=== PATIENT | female | born 2000 | race Caucasian/White ===

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

== ENCOUNTER 2022-03-24 14:03 | Emergency (ER) | payer OTHER, SELFPAY ==
[2022-03-24 15:34] VITALS: BP 121/69; PULSE 62; RESP 16; TEMP 36.3; O2SAT 100
--- NOTE | 2022-03-26 13:43 | ED.GENADULT ---
HPI - General Adult General Chief complaint: Upper Respiratory Infection Stated complaint: bilateral ear pain History of Present Illness HPI narrative: 21 y/o female. PMHx none reported. Presents to [facility] today with acute complaints of bilateral ear pain and discharge, LT > Burdensome than RT. Manifestations present for past 72 hours. Minimal reliefs at home. No fevers, no rashes or lesions. Mild nasal congestion. No cough, dyspnea, wheezing. Hearing is 'muffled', no hearing loss or auditory trauma. Related Data Home Medications Medication Instructions Recorded Confirmed drospirenone (contraceptive) 4 mg 4 mg DAILY 12/06/21 03/24/22 (28) tablet (Slynd) sertraline 50 mg tablet 50 mg DAILY 12/06/21 03/24/22 topiramate 25 mg sprinkle capsule 25 mg PO DAILY 12/06/21 03/24/22 Allergies Allergy/AdvReac Type Severity Reaction Status Date / Time No Known Allergies Allergy Verified 03/24/22 15:49 Review of Systems Review of Systems: CONSTITUTIONAL: Denies fever, chills, sweats. EYES: Denies visual changes, redness, discharge. ENT: Positive rhinorrhea. No congestion, sore throat. Bilateral otalgia. CARDIOVASCULAR: Denies chest pain, palpitations, edema. RESPIRATORY: Denies dyspnea, wheezing, cough GASTROINTESTINAL: Denies abdominal pain, nausea, vomiting, diarrhea. All other systems have been reviewed: Unless noted remaining ROS Negative. [facility] Family History Family History Other No active medical problems Social History Social History Smoking status: Never smoker Exam Narrative: GENERAL: This is a well-nourished, well-developed adult, in no apparent distress. HEAD: normocephalic, atraumatic. EYES: PERRL. Sclera clear/white. EARS: External ears normal, Bilateral auditory canals are erythematous w/mild yellow discharge. TMs are bulging, erythematous bilateral, LT > RT. No canal obstruction, TMs intact, no perforation. Positive Tragus maneuver LT. Hearing remains grossly intact bilaterally. NOSE: External nose normal. Positive Rhinorrhea, no obstruction, nares patent. THROAT: Mucous membranes moist, posterior pharynx clear. No exudates. NECK: Neck supple, non-tender without lymphadenopathy, masses or thyromegaly. CARDIOVASCULAR: Regular rate and rhythm without murmurs, gallops, or rubs. RESPIRATORY: Clear to auscultation. Breath sounds equal bilaterally. No wheezes, rales, or rhonchi. GASTROINTESTINAL: Abdomen soft, non-tender, nondistended. Bowel sounds are active. No guarding. SKIN: warm, intact with no suspicious lesions or rash, good texture and turgor. NEURO: Alert, active, and age appropriate. Course Course Level of Care: Express Care Visit Vital Signs Vital signs: Vital Signs Temperature 36.3 C L 03/24/22 15:34 Pulse Rate 62 03/24/22 15:34 Respiratory Rate 16 03/24/22 15:34 Blood Pressure 121/69 03/24/22 15:34 Pulse Oximetry 100 03/24/22 15:34 Temperature 36.3 C L 03/24/22 15:34 Pulse Rate 62 03/24/22 15:34 Respiratory Rate 16 03/24/22 15:34 Blood Pressure 121/69 03/24/22 15:34 Pulse Oximetry 100 03/24/22 15:34 Medical Decision Making Differential Diagnosis Differential Diagnosis: Differential Diagnosis: Consideration of the following conditions may be warranted for the presenting problem, they are not final diagnoses: Otitis media, Otitis externa, TM perforation, FB, Cerumen impaction, Dental infection, TMJ dysfunction, Kai Benitez Sx, and/or other. Vital Signs Vital Signs: Vital Signs Temperature 36.3 C L 03/24/22 15:34 Pulse Rate 62 03/24/22 15:34 Respiratory Rate 16 03/24/22 15:34 Blood Pressure 121/69 03/24/22 15:34 Pulse Oximetry 100 03/24/22 15:34 Temperature 36.3 C L 03/24/22 15:34 Pulse Rate 62 03/24/22 15:34 Respiratory Rate 16 03/24/22 15:34 Blood Pressure 121/69 //
== END 2022-03-24 16:22 | disposition home or self-care (01) ==
PROVIDERS: Emergency Provider Nurse Practitioner Adult Health; PCP Physician Assistant
DX: J06.9 Acute upper respiratory infection, unspecified (principal); H66.93 Otitis media, unspecified, bilateral
CPT/HCPCS: 99213; G0463

== ENCOUNTER 2022-11-24 15:42 | Emergency (ER) | payer OTHER, SELFPAY ==
--- NOTE | ~2022-11-24 | XR_ITS ---
EXAMINATION: XR ankle RT min 3V, XR foot RT min 3V DATE: 11/24/2022 16:07 INDICATION: Right ankle injury one day prior presenting with distal right fibular and lateral right f oot pain. TECHNIQUE: 1. Anteroposterior, mortise, additional oblique and lateral view of the right ankle were obtained. 2. Dorsoplantar, two oblique and lateral views of the right foot were obtained. COMPARISON: None. FINDINGS: Alignment of the foot and ankle is normal. No fracture or osteochondral lesion. Joint spaces are well maintained. No ankle joint effusion. Prominent soft tissue swelling about the lateral malleolus. IMPRESSION: 1. No osseous abnormality at the right foot or ankle. Reviewed, dictated and finalized at location A. IMPRESSION: 1. No osseous abnormality at the right foot or ankle.
[2022-11-24 15:52] VITALS: BP 129/77; PULSE 114; RESP 18; TEMP 36.7; O2SAT 100
--- NOTE | 2022-11-24 16:10 | ED.LOWEXIN ---
HPI - Extremity Injury (Lower) General Chief Complaint: Extremity Injury, Lower Stated Complaint: swelling to right ankle Time Seen by Provider: 11/24/22 16:10 Source: patient, RN notes reviewed and old records reviewed Mode of arrival: ambulatory Limitations: no limitations History of Present Illness HPI Narrative: 22-year-old female presents to the [facility] with complaints of right ankle pain and swelling since rolling her ankle in firstly yesterday. Onset (ago): day(s) (1) Related Data Home Medications Medication Instructions Recorded Confirmed topiramate 25 mg sprinkle capsule 25 mg PO DAILY 12/06/21 11/24/22 Allergies Allergy/AdvReac Type Severity Reaction Status Date / Time No Known Allergies Allergy Verified 11/24/22 16:21 Review of Systems Review of Systems: All systems reviewed & are unremarkable except as noted in HPI and below Constitutional: Constitutional: Reports no additional constitutional complaints Eyes: Eyes: Reports no additional eye complaints ENT: Reports system reviewed and no additional complaints, except as documented Cardiovascular: Cardiovascular: Reports no additional cardiovascular complaints, Denies chest pain and Denies dyspnea Respiratory: Respiratory: Reports no additional respiratory complaints, Denies chest congestion, Denies cough and Denies dyspnea Gastrointestinal: Gastrointestinal: Reports no additional gastrointestinal complaints, Denies abdominal pain, Denies nausea and Denies vomiting Musculoskeletal: Musculoskeletal: Reports arthralgias and Reports joint swelling Integumentary/Breasts: Skin/Breast: Reports system reviewed and no additional complaints, except as docu Neurologic: Reports system reviewed and no additional complaints, except as documented Psychiatric: Psychiatric: Reports no additional psychiatric complaints Allergic/Immunologic: Allergic/Immunologic: Reports no additional allergic/immunologic complaints [facility] Past Medical History Medical History Encounter for biopsy on her leg as a child History of PCOS Family History Family History Other No active medical problems Social History Social History Smoking status: Never smoker Alcohol intake: never Substance use: never Substance use type: does not use Current Housing: Decline to Answer Concerned About Future Housing: Decline to Answer Difficulty Paying Gas/Electric Bills: Decline to Answer Difficulty Paying for Meds: Decline to Answer Currently Unemployed: Decline to Answer Education: Decline to Answer Difficulty w/ Childcare or Family Care: Decline to Answer Living arrangements: with family Occupation/Education: occupation Additional occupation/education comments: retail specialist Gender identity (if verbalized by the patient): Female Sexual Orientation (if Verbalized by the Patient): Straight or Heterosexual Comments At the time of my signature, I reviewed and agree with the nursing past medical, surgical, social, and family history. There is no relevant family history pertinent to the patient complaint. Exam Const: General: cooperative, healthy appearing, comfortable, no acute distress, well developed, alert and well nourished Nutritional Appearance: well nourished and obese Orientation/consciousness: patient oriented x3 Limitations: no limitations HENMT: Head: normal to inspection Ears: hearing grossly normal bilaterally and external ears normal Face/Nose/Sinus: Normal external nose present, Normal nares present, Normal nasal mucous membranes and turbinates present and normal facial exam Face and sinus: normal facial exam Mouth: Yes lip normal Eyes: General: appearance normal, both eyes and all related structures Alignment and Position: alignment normal Periorbital: periorbital findings
== END 2022-11-24 16:27 | disposition home or self-care (01) ==
PROVIDERS: Emergency Provider Nurse Practitioner
DX: S93.401A Sprain of unspecified ligament of right ankle, initial encounter (principal); S96.911A Strain of unspecified muscle and tendon at ankle and foot level, right foot, initial encounter; X50.9XXA Other and unspecified overexertion or strenuous movements or postures, initial encounter
CPT/HCPCS: 73610; 73630; 99213; G0463

== ENCOUNTER 2023-05-19 08:27 | Emergency (ER) | payer OTHER, SELFPAY ==
[2023-05-19 08:43] VITALS: BP 114/56; PULSE 58; RESP 16; TEMP 36.8; O2SAT 100
--- NOTE | 2023-05-19 08:53 | ED.EAR ---
HPI - Ear Problem General Chief complaint: Ear Stated complaint: Ear Irritation, Hard to Hear Time Seen by Provider: 05/19/23 08:40 Source: patient Mode of arrival: ambulatory Limitations: no limitations History of Present Illness HPI Narrative: Patient is a 22-year-old female that presents with right ear pain that started Monday. Denies any sore throat, cough, fever, chills, nausea, vomiting, diarrhea. States she has had decreasing. History of ear infections as a child. MD Complaint: ear pain Related Data Home Medications Medication Instructions Recorded Confirmed topiramate 25 mg sprinkle capsule 25 mg PO DAILY 12/06/21 05/19/23 Allergies Allergy/AdvReac Type Severity Reaction Status Date / Time No Known Allergies Allergy Verified 05/19/23 08:43 Review of Systems Review of Systems: All systems reviewed & are unremarkable except as noted in HPI and below Constitutional: Constitutional: Denies body ache(s), Denies chills, Denies fever(s), Denies headache(s) and Denies malaise Eyes: Eyes: Denies blurry vision, Denies eye discharge and Denies irritation ENT: Reports otalgia, Denies headache(s), Reports hearing loss, Denies nasal congestion, Denies nasal discharge and Denies sore throat Cardiovascular: Cardiovascular: Denies chest pain, Denies edema, Denies palpitations and Denies dyspnea on exertion Respiratory: Respiratory: Denies cough and Denies dyspnea on exertion Gastrointestinal: Gastrointestinal: Denies abdominal pain, Denies diarrhea, Denies nausea and Denies vomiting Musculoskeletal: Musculoskeletal: Denies back pain, Denies arthralgias and Denies muscle weakness Integumentary/Breasts: Skin/Breast: Denies pruritus and Denies rash Neurologic: Denies headache(s) Psychiatric: Psychiatric: Reports no additional psychiatric complaints Endocrine: Endocrine: Denies palpitations PMFSH Past Medical History Medical History Encounter for biopsy on her leg as a child History of PCOS Family History Family History Other No active medical problems Social History Social History Smoking status: Never smoker Alcohol intake: never Substance use: never Substance use type: does not use Current Housing: Decline to Answer Concerned About Future Housing: Decline to Answer Difficulty Paying Gas/Electric Bills: Decline to Answer Difficulty Paying for Meds: Decline to Answer Currently Unemployed: Decline to Answer Education: Decline to Answer Difficulty w/ Childcare or Family Care: Decline to Answer Living arrangements: with family Occupation/Education: occupation Additional occupation/education comments: retail planner Gender identity (if verbalized by the patient): Female Sexual Orientation (if Verbalized by the Patient): Straight or Heterosexual Comments At time of signature, agree with nursing past medical, surgical, social and family history. There is no relevant family history pertinent to the presenting complaint? Exam Const: General: cooperative, healthy appearing, no acute distress and well nourished Nutritional Appearance: well nourished Orientation/consciousness: patient oriented x3 Limitations: no limitations HENMT: Head: normal to inspection, normocephalic and atraumatic Ears: hearing grossly normal bilaterally, EAC's normal, no periauricular adenopathy and TM abnormal bulging on the right, wth effusion serous on the left and erythematous on the right Face/Nose/Sinus: Normal external nose present, Normal nares present, Normal nasal mucous membranes and turbinates present, No nasal discharge present, normal facial exam and sinuses nontender Face and sinus: normal facial exam and sinuses nontender Mouth: Yes Normal oral and palatal mucosa present, Yes lip normal, Yes tongue normal and Yes moist mucous
== END 2023-05-19 09:04 | disposition home or self-care (01) ==
PROVIDERS: Emergency Provider Nurse Practitioner Family
DX: H66.001 Acute suppurative otitis media without spontaneous rupture of ear drum, right ear (principal); E28.2 Polycystic ovarian syndrome
CPT/HCPCS: 99213; G0463

== ENCOUNTER 2024-02-24 09:31 | Emergency (ER) | payer OTHER, SELFPAY ==
--- NOTE | ~2024-02-24 | XR_ITS ---
XR foot RT 2V DATE: 02/24/2024 10:02 INDICATION: Right lateral foot pain for one week TECHNIQUE: AP and lateral views COMPARISON: None FINDINGS: No fracture, dislocation, periosteal reaction or bone destruction. Joint spaces are preserv ed. No erosive change. No calcaneal enthesopathy. IMPRESSION: Negative Reviewed, dictated and finalized at location A. UTER HARDWARE DEVELOPER IMPRESSION: Negative
[2024-02-24 09:40] VITALS: BP 114/62; PULSE 62; RESP 12; TEMP 37.2; O2SAT 100
--- NOTE | 2024-02-24 09:42 | ED_ITS ---
HPI - Extremity Injury (Lower) General Chief Complaint: Extremity Injury, Lower Stated Complaint: side of right foot pain Time Seen by Provider: 02/24/24 09:46 Source: patient, RN notes reviewed and old records reviewed Mode of arrival: ambulatory Limitations: no limitations History of Present Illness HPI Narrative: Patient presents with complaints of right foot pain that has been present for 4- 5 days. She reports pain is worse when she 1st stands up begins walking, decreases when she rests the foot. Pain is mostly in the arch and on the lateral aspect. She denies injury or trauma. Has taken Tylenol once for her symptoms with moderate relief. She is observed ambulating with a steady gait. No other concerns or complaints today Related Data Home Medications Medication Instructions Recorded Confirmed topiramate 25 mg sprinkle capsule 25 mg PO DAILY 12/06/21 02/24/24 Allergies Allergy/AdvReac Type Severity Reaction Status Date / Time No Known Allergies Allergy Verified 02/24/24 09:40 Review of Systems Review of Systems: All systems reviewed & are unremarkable except as noted in HPI and below Constitutional: Constitutional: Reports no additional constitutional com plaints ENT: Reports system reviewed and no additional complaints, except as documented Cardiovascular: Cardiovascular: Reports no additional cardiovascular complaints Respiratory: Respiratory: Reports no additional respiratory complaints Gastrointestinal: Gastrointestinal: Reports no additional gastrointestinal complaints Musculoskeletal: Musculoskeletal: Reports no additional musculoskeletal complaints and Reports as per HPI [facility] Past Medical History Medical History Encounter for biopsy on her leg as a child History of PCOS Family History Family History Other No active medical problems Social History Social History Smoking status: Never smoker Alcohol intake: never Substance use: never Substance use type: does not use Current Housing: Decline to Answer Concerned About Future Housing: Decline to Answer Difficulty Paying Gas/Electric Bills: Decline to Answer Difficulty Paying for Meds: Decline to Answer Currently Unemployed: Decline to Answer Education: Decline to Answer Difficulty w/ Childcare or Family Care: Decline to Answer Living arrangements: with family Occupation/Education: occupation 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 There is no relevant family history pertinent to the patient complaint. Exam Const: General: cooperative, no acute distress, alert and awake Orientation/consciousness: oriented to person, oriented to place and oriented to time HENMT: Head: normal to inspection Resp: Effort & Inspection: normal respiratory effort and able to speak in complete sentences Auscultation: clear to auscultation bilaterally, no crackles, no rales, no rhonchi and no wheezes Cardio: Palpation: normal PMI Rate: regular rate Rhythm: regular rhythm Heart sounds: S1 normal heart sound present and S2 normal heart sound present Neuro: General: oriented to person, oriented to place and oriented to time Cranial nerves: Yes CN's II-XII intact bilaterally Extrem: Right lower extremity: foot Details: normal capillary refill, normal to inspection and tenderness Location: of the plantar foot and of the lateral foot Psych: Appearance: grossly normal Thought process: Normal thought process present Insight: Good insight present (Psych) Judgement: Good judgement present (Psych) Course Course Level of Care: Express Care Visit Vital Signs Vital signs: Reviewed MDM - Extremity Injury (Lower) MDM Narrative Medical decision making narrative: History and exam consistent with plantar fasciitis. Treat with prednisone burst. Follow with primary care provider. Negative x-ray. Discharge instructions reviewed with patient, as well as provided in writing per nursing staff. The instructions also include specific and strict return/GO TO THE ER as well as f/u information. All questions have been answered, and the patient deny any further questions with discharge and discharge plan. Some parts of this dictation were generated by voice recognition software and may contain typographical and/or grammatical inaccuracies. Differential Diagnosis Differential diagnosis: Likely other (Foot fracture) Medical Records Attestation: I reviewed the patient's medical records. Imaging Data Attestation: I personally reviewed and interpreted this imaging study as fol lows: My impression: no fracture Radiologist's impression: [facility] [address] [place] [address] XRay Report Signed Patient: Tia Jonas : 2000 MR#: [id number] Age: 23 Acct:[id number] Loc: [facility] ADM Date: 02/24/24Attending Dr: Ordering Physician: Laurita Zhou FNP Date of Service: 02/24/24 Procedure(s): XR foot RT 2V Accession Number(s): [id number] cc: Laurita Zhou FNP; UNKNOWN,DOCTOR~ XR foot RT 2V DATE: 02/24/2024 10:02 INDICATION: Right lateral foot pain for one week TECHNIQUE: AP and lateral views COMPARISON: None FINDINGS: No fracture, dislocation, periosteal reaction or bone destruction. Joint spaces are preserved. No erosive change. No calcaneal enthesopathy. IMPRESSION: Negative Reviewed, dictated and finalized at location A. ETOLOGY PROFESSOR Dictated By: Jacek Plunkett MD 02/24/24 1022 Signed By: <Electronically signed by Jacek Plunkett MD in OV> 02/24/24 1023 Discharge Plan Discharge Clinical Impression: Plantar fasciitis of right foot Patient Disposition: Home, Self-Care Condition: Stable Instructions: Antibiotic Form, Plantar Fasciitis (ED), Plantar Fasciitis Exercises (ED) Additional Instructions: Take medication as prescribed. Follow-up primary care provider. Emergency department for new or worse symptoms Patient Language: Kazakh Prescriptions: New prednisone 50 mg tablet 50 mg PO DAILY Qty: 5 0RF No Action topiramate 25 mg capsule, sprinkle 25 mg PO DAILY Slynd 4 mg (28) tablet 1 tablet PO DAILY Qty: 84 4RF Follow-up/Referrals: UNKNOWN,DOCTOR [Primary Care Provider] - Stand Alone Forms: Work/School Release IP Time of Disposition: 10:30
== END 2024-02-24 10:38 | disposition home or self-care (01) ==
PROVIDERS: Emergency Provider Nurse Practitioner Family
DX: M72.2 Plantar fascial fibromatosis (principal); E28.2 Polycystic ovarian syndrome
CPT/HCPCS: 73620; 99213; G0463

== ENCOUNTER 2024-06-30 16:38 | Emergency (ER) | payer OTHER, SELFPAY ==
--- NOTE | ~2024-06-30 | XR_ITS ---
HISTORY: foot pain-rolled foot COMPARISON: 02/24/2024 TECHNIQUE: 3 views of the right foot were performed FINDINGS: No acute fracture or dislocation is appreciated. No significant degenerative disease is noted. The base of the fifth metatarsal is intact. No calcaneal spur is noted. Moderate soft tissue swelling is identified within the forefoot along the plantar surface. IMPRESSION: Soft tissue swelling, without fracture. Reviewed, dictated and finalized at location A.
--- NOTE | ~2024-06-30 | XR_ITS ---
HISTORY: ankle injury/pain-rolled ankle COMPARISON: 11/24/2022 TECHNIQUE: 3 views of the right ankle were performed FINDINGS: No acute fracture or dislocation. Significant lateral soft tissue swelling. The ankle mortise is preserved. Bone mineralization is age-appropriate. IMPRESSION: Lateral soft tissue swelling without acute fracture Reviewed, dictated and finalized at location A.
--- NOTE | 2024-06-30 16:39 | ED.LOWEXIN ---
HPI - Extremity Injury (Lower) General Chief Complaint: Extremity Injury, Lower Stated Complaint: rolled right ankle Time Seen by Provider: 06/30/24 16:39 Source: patient Mode of arrival: ambulatory Limitations: no limitations History of Present Illness HPI Narrative: Tia is a 23-year-old female patient presenting to the clinic today with complaints of ankle pain. She reports she rolled her ankle at 12:15 p.m. this afternoon while at work. Applied ice to the area of pain. Has swelling and pain to the lateral right ankle as well as to the bottom of the right foot. Related Data Home Medications ?Medication ?Instructions ?Recorded ?Confirmed ?Last Taken ?Type topiramate 25 mg sprinkle capsule 25 mg PO DAILY 12/06/21 06/30/24 Unknown History Allergies Allergy/AdvReac Type Severity Reaction Status Date / Time No Known Allergies Allergy Verified 06/30/24 16:39 Review of Systems Review of Systems: Pertinent positives per HPI. Patient denies any fever, chills, rash, headache, visual changes, dizziness, cough, runny nose, sore throat, shortness of breath, chest pain, palpitations, nausea, vomiting, diarrhea, constipation, abdominal pain, or any urinary issues. [facility] Past Medical History Medical History History of PCOS Encounter for biopsy on her leg as a child Family History Family History Other No active medical problems Social History Social History Smoking status: Never smoker Alcohol intake: never Substance use: never Substance use type: does not use Current Housing: Decline to Answer Concerned About Future Housing: Decline to Answer Difficulty Paying Gas/Electric Bills: Decline to Answer Difficulty Paying for Meds: Decline to Answer Currently Unemployed: Decline to Answer Education: Decline to Answer Difficulty w/ Childcare or Family Care: Decline to Answer Living arrangements: with family Occupation/Education: occupation 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 There is no relevant family history pertinent to the patient complaint. Exam Narrative: General: Well-developed, obese, in no apparent distress Head: Normocephalic, atraumatic. Cardio: Regular rate and rhythm, s1 and s2 normal, no murmur appreciated. Resp: Clear to auscultation bilaterally, no rhonchi, rales, wheezing or rubs. Musculoskeletal: No deformity, right lateral ankle swelling, tender to palpation over the right lateral ankle and to the bottom of the right lateral foot, limited range of motion due to pain, pain with bearing weight, muscle strength strong and equal, peripheral pulse strong, no edema, no cyanosis, normal gait and station Course Course Emergency Course: Portions of this record may have been created with voice recognition software. Level of Care: Express Care Visit Vital Signs Vital signs: Vital Signs Temperature 36.9 C 06/30/24 16:52 Pulse Rate 77 06/30/24 16:52 Respiratory Rate 18 06/30/24 16:52 Blood Pressure 131/95 H 06/30/24 16:52 Pulse Oximetry 100 06/30/24 16:52 Oxygen Delivery Room Air 06/30/24 16:52 Temperature 36.9 C 06/30/24 16:52 Pulse Rate 77 06/30/24 16:52 Respiratory Rate 18 06/30/24 16:52 Blood Pressure 131/95 H 06/30/24 16:52 Pulse Oximetry 100 06/30/24 16:52 Oxygen Delivery Room Air 06/30/24 16:52 Vital signs reviewed MDM - Extremity Injury (Lower) MDM Narrative Medical decision making narrative: At the time of visit patient is resting comfortably on the exam table. Patient appears to be nontoxic. Diagnostics: X-ray of the right ankle and foot were performed. X-rays were negative for any sign of fracture or malalignment of the right ankle and right foot Plan: I suspect patient has right ankle/foot sprain. Rufus wrap was applied. Work note was given. Supportive measures were discussed with the patient and they voiced understanding discharge instructions and agrees to treatment plan. Return precautions reviewed Differential Diagnosis Differential diagnosis: Likely ankle sprain and strain, ankle fracture and other (Foot fracture, foot sprain, foot contusion) Imaging Data Radiologist's impression: ITS Impressions Ankle X-Ray 06/30/24 17:08 IMPRESSION: Lateral soft tissue swelling without acute fracture Foot X-Ray 06/30/24 17:09 IMPRESSION: Soft tissue swelling, without fracture. Discharge Plan Discharge Clinical Impression: Right ankle sprain Qualifiers: Encounter type: initial encounter Involved ligament of ankle: unspecified ligament Qualified Code(s): S93.401A - Sprain of unspecified ligament of right ankle, initial encounter Sprain of right foot Qualifiers: Encounter type: initial encounter Qualified Code(s): S93.601A - Unspecified sprain of right foot, initial encounter Patient Disposition: Home, Self-Care Condition: Stable Instructions: Antibiotic Form, Ankle Sprain (ED), Foot Sprain (ED) Additional Instructions: X-rays negative for any sign of fracture or malalignment of the ankle or foot Rest, ice, elevate, and wear rufus wrap as directed Tylenol/motrin for pain as discussed. Gradually bear weight No running or sports until healed. Follow up with your PCP if symptoms persist more than 1 week. Patient Language: Icelandic Prescriptions: No Action topiramate 25 mg capsule, sprinkle 25 mg PO DAILY Slynd 4 mg (28) tablet 1 tablet PO DAILY Qty: 84 4RF Follow-up/Referrals: UNKNOWN,DOCTOR [Non-Staff] - Stand Alone Forms: Work/School Release IP Time of Disposition: 17:13 Quality NIHSS Nursing Documentation ED NIHSS nursing documentation: reviewed/agree
--- OUTSIDE RECORDS SUMMARY | 2024-06-30 16:40 | XMS_ITS | Clinical Summary ---
Author Organization [facility] Address [facility] [place] [address] Care Team Providers Care Baking Powder Mixer Name Role Phone None, Provider MD Primary Care Provider Unavaila ble Allergies No known active allergies Medications naproxen (NAPROSYN) 500 MG tablet Take 1 tablet (500 mg total) by mouth 2 (two) times daily with meals. 60 tablet 02/24/2024 Active Active Problems Problem Noted Date Diagnosed Date Sprain of anterior talofibular ligament of right ankle 10/14/2019 Depression 07/21/2017 Tension type headache 04/29/2016 ADHD (attention deficit hype ractivity disorder), combined type 02/13/2015 Resolved Problems Problem Noted Date Diagnosed Date Resolved Date Well child visit 02/04/2015 12/06/2019 Immunizations Name Administration Dates Next Due Dtap 10/31/2008, 5,05/30/2003,03/17/2003 ,01/14/2003 Dtap (Generic) 10/31/2008, 5,05/30/2003,03/17/2003 ,01/14/2003 HPV 10/27/2014 HPV GARDASIL 9-VALENT 12/14/2020 HPV4 (Gardasil) 10/27/2014 Hepatitis A (Generic) 11/03/2005 Hepatitis A (Havrix [address]) 12/14/2020 Hepatitis B 09/12/2003,2002 Hepatitis B (Generic: Adult) 09/12/2003,03/17/20 03,01/14/2003 Hib (Generic) 04/21/2004,05/30/2003 Hib Vaccine, Prp-Omp 09/12/2003,03/17/2003,01/14 Hib-Hepatitis B (Comvax) 03/17/2003,01/14/2003 Influenza Adult (Generic) 01/19/2013 MMR 10/31/2008,04/21/2004 MMR (Generic) 10/31/2008,04/21/2004 Menactra 10/27/2014 Meningococcal (Menactra) 12/14/2020 Meningococcal Vac A,C,Y,W-135 Sc 10/27/2014 Pneumococcal (Prevnar 13) 04/21/2004,05/30/2003, 03/17/2003,01/14/2003 Pneumococcal (Prevnar 7) 04/21/2004,05/30/2003,1 2002,01/14/2003 Polio IPV (Ipol) 10/31/2008,06/29/2004, 3,01/14/2003 Polio Ipv (Generic) 10/31/2008,06/29/2004,2002,01/14/2003 Tdap (Generic) 10/27/2014 Varicella Vaccine 10/27/2014,10/31/2008,12/03/19 04 Family History Relation Status Comments Father Alive Mother Alive Social History Tobacco Use Types Packs/Day Years Used Date Smoking Tobacco: Never Smokeless Tobacco: Never Alcohol Use Standard Drinks/Week Comments Not Currently 0 (1 standard drink = 0.6 oz pur e alcohol) Comments Unknown Sex and Gender Information Value Date Recorded Sex Assigned at Not on file Legal Sex Female 2:40 PM CDT Gender Identity Not on file Sexual Orientation Not on file Last Filed Vital Signs Vital Sign Reading Time Taken Comments Blood Pressure 120/60 02/24/2024 8:00 PM RECRUITMENT MANAGER Pulse 85 02/24/2024 8:00 PM RECRUITMENT MANAGER Temperature 36.7 C (98 F) 02/24/2024 8:00 PM RECRUITMENT MANAGER Respiratory Rate 18 02/24/2024 8:00 PM RECRUITMENT MANAGER Oxygen Saturation 100% 02/24/2024 8:00 PM RECRUITMENT MANAGER Inhaled Oxygen Concentration - - Weight 90.7 kg (200 lb) 02/24/2024 5:14 PM RECRUITMENT MANAGER Height 162.6 cm (5' 4 ) 02/24/2024 5:14 PM RECRUITMENT MANAGER Body Mass Index 34.33 02/24/2024 5:14 PM RECRUITMENT MANAGER Plan of Treatment Health Maintenance Due Date Last Done Comments Cervical Cancer Screening Pap Smear (Age 21 to 29) Every 3 Years 2002 Cervical Cancer Screening 2002 Annual Physical 2005 Meningococcal B Vaccine (1 of 2 - Standard) 2018 Hepatitis C 2020 COVID-19 Vaccine ( season) 2023 07/20/2020, 06/29/2020 Influenza Adult (#1) 2023 01/19/2013 DTaP, Tdap and Td Vaccines (7 - Td or Tdap) 10/27/2024 10/27/2014, 10/31/2008, 10/31/2008, Additional history exists Hepatitis B Vaccines Completed 09/12/2003, 09/12/2003, 03/17/2003, Additional history exists Pneumococcal Vaccine: Pediatrics (0 to 5 Years) and At-Risk Patients (6 to 64 Years) Completed 04/21/2004, 04/21/2004, 05/30/2003, Additional history exists HPV Vaccines Completed 12/14/2020, 05/2014, 10/27/2014 Meningococcal Vaccine Completed 12/14/2020 , 10/27/2014, 10/27/2014 RSV Immunizations Under 20 Months Aged Out No longer eligible based on patient's age to complete this topic Insurance GARCIA GARCIA Care Teams Baking Powder Mixer Relationship Specialty Start Date End Date None, Provider, PCP - General UNKNOWN PHYSICIAN SPECIALTY 02/24/24
--- OUTSIDE RECORDS SUMMARY | 2024-06-30 16:40 | XMS_ITS | Continuity of Care Document ---
Author Organization [facility] Address [address] [place] [address] [place] [address] Phone Care Team Providers Care Instant Print Operator Name Role Phone Rm Potter MD Unavailable Unavailable Allergies, Adverse Reactions, Alerts Substance Reaction Status Criticality No Known Allergies Active No Inform ation Medications Medication Instructions Dosage Effective Dates (start - stop) Status Comments Ritalin 20 mg tablet take 1 tablet by or al route 2 times every day 20 MG - Active Procedures Procedure Date OFFICE/OUTPATIENT VISIT, EST OFFICE/OUTPATIENT VISIT, EST PREV VISIT, NEW, AGE 5-11 Advance Directives Directive Yes / No Effective Date File Name No Information Encounters Encounter Description Practice Location Reason(s) For Visit Diagnoses Date Provider Providers Copied on Encounter OFFICE/OUTPA TIENT VISIT, EST [facility], [address] [place], [place], [id number], tel:[phone] [facility] ADD (chief complaint) Attention deficit disorder of childhood without mention of hyperactivityConduc t disorder, adolescent onset type Jun-201 5 Tariq Abdalla. [address] [facility] [place], [place], [id number] , [place]. tel:[phone] Referring Provider: Rm Potter, [address] [facility] [address], [place], [place], [id number]. tel:[phone] OFFICE/OUTPA TIENT VISIT, EST [facility], [address] [place], [id number], [place] tel:[phone] [facility] ADD (chief complaint) headache (chief complaint) Attention deficit disorder of childhood without mention of hyperactivityHeadac heConduct disorder, adolescent onset type 5 Tariq Abdalla. [address], [place], [place], [address] , [place]. tel:[phone] Referring Provider: Rm Ptoter, [address], [place], [place], [id number]. tel:[phone] PREV VISIT, NEW, AGE 5-11 [facility], [address], [place], [place], [id number], [place] tel:[phone] [facility] physical (chief complaint) Routine Medical ExamRoutine Medical Exam 4 Tariq Abdalla. [address], [place], [place], [address] , [place]. tel:[phone] Family History Family Member Type Diagnosis Age At Onset Mother Problem (finding) Alive and well Father Problem (finding) Alive and well Payers Payer name Insurance type Covered democrat ID Authoriza tion(s) No Information Social History Type Description Quantity Date Captured Comments Alcohol Use Details Unknown Caffeine Use Details Unknown Tobacco Use Status No Information Smoking Status No Information Sex Female Vital Signs Date / Time: Height Weight BMI Pulse Rate Blood Pressure Temperature Respiratory Rate Body Surface Area Head Circumference BMI percentile Pulse Ox Inhaled Ox 6:13 PM 60.00 in 118.00 lbs 23.0 4 kg/m eter (2) 62 /min 102/47 mm[Hg] 98.0 F 16 /min 91 Chief Complaint And Reason For Visit From encounter dated '07/03/2014 16:00'. ADD (chief complaint) Plan Of Treatment Date Type Action Status No Information History Of Present Illness Encounter Date Complaint History Of Prese nt Illness No Information Instructions Date Instruction Additional Infor mation No Information Assessments Type Assessment Date No Information Mental Status Date Cognitive Assessment Orientation - [place] ed to time, place, person, situation.
--- OUTSIDE RECORDS SUMMARY | 2024-06-30 16:47 | XMS_ITS | Continuity of Care Document ---
Author Organization [facility] Address [address] [place] [address] [place] [address] Phone Care Team Providers Care Kiln Burner Name Role Phone Rm Potter MD Unavailable [...] Copied on Encounter OFFICE/OUTPA TIENT VISIT, EST [facility], [address] [place], [place], [id number], tel:[phone] [facility] ADD (chief complaint) Attention deficit disorder of childhood without mention of hyperactivityConduc t disorder, adolescent onset type Jun-201 5 Tariq Abdalla. [address] [facility] [place], [address] , [place]. tel:[phone] Referring Provider: Rm Potter, [address] [facility] [address], [place], [place], [id number]. tel:[phone] OFFICE/OUTPA TIENT VISIT, EST [facility], [address] [place], [id number], [place] tel:[phone] [facility] ADD (chief complaint) headache (chief complaint) Attention deficit disorder of childhood without mention of hyperactivityHeadac heConduct disorder, adolescent onset type 5 Tariq Abdalla. [address], [place], [place], [address] , [place]. tel:[phone] Referring Provider: Rm Potter, [address], [place], [place], [id number]. tel:[phone] PREV VISIT, NEW, AGE 5-11 [facility], [address], [place], [place], [address], [place] tel:[phone] [facility] physical (chief complaint) Routine Medical ExamRoutine Medical Exam 4 Tariq Abdalla. [address], [place], [place], [address] , [place]. tel:[phone] Family History Family Member Type Diagnosis Age At Onset Mother Problem (finding) Alive and well Father Problem (finding) Alive and well Payers Payer name Insurance type Covered green party ID Authoriza tion(s) No Information Social History [...] Mental Status Date Cognitive Assessment Orientation - [place] ed to time, place, person, situation.
[2024-06-30 16:52] VITALS: BP 131/95; PULSE 77; RESP 18; TEMP 36.9; O2SAT 100
== END 2024-06-30 17:22 | disposition home or self-care (01) ==
PROVIDERS: Emergency Provider Nurse Practitioner Family
DX: S93.401A Sprain of unspecified ligament of right ankle, initial encounter (principal); X50.9XXA Other and unspecified overexertion or strenuous movements or postures, initial encounter; Y99.0 Civilian activity done for income or pay; E28.2 Polycystic ovarian syndrome
CPT/HCPCS: 73610; 73630; 99213; G0463